=== PATIENT | male | born 1975 | race Asian ===

== ENCOUNTER → 2019-04-16 | Day surgery (SDC) | payer OTHER ==
[~2019-04-16] MED LIST: ASPIR 8181 MG PO; ATORVASTATIN CA10 MG PO; FENOFIBRATE145 MG PO; FENTANYL CITRATE/PF 100MCG/2 ML INJ ONE; MIDAZOLAM HCL 2 MG/2 ML VIAL ONE; MULTI-VITAMIN1 EACH PO; PROPOFOL IV EMULSION 10 MG/ML 50 ML VIAL ONE
--- OUTSIDE RECORDS SUMMARY | 2019-04-16 05:33 | XMS REPORT ---
Author Author Prateek Baugh Organization [employer] Address Unknown Phone Unavailable Care Team Providers Care Esthetician/Spa Coordinator Name Role Phone Prateek Baugh CP Unavailable Allergies, Adverse Reactions, Alerts Substance Reaction Event Type aspirin swollen eye/trouble breathing Drug Allergy Problems Problem Type Condition Code Onset Dates Condition Status Problem Special screening for malignant neoplasm of prostate V76.44 Active Problem Hepatitis B exposure V01.79 Active Problem Prev Med Adult V70.0 Active Problem COPD (chronic obstructive pulmonary disease) J44.9 Active Problem BMI 31.0-31.9,adult Z68.31 Active Problem Hypertriglyceridemia E78.1 Active Problem Internal hemorrhoids without mention of complication 455.0 Active Problem Abdominal pain, other specified site 789.09 Active Problem Cigarette smoker one half pack a day or less F17.210 Active Problem Malnutrition of moderate degree 263.0 Active Assessment Hypertriglyceridemia E78.1 Active Assessment BMI 31.0-31.9,adult Z68.31 Active Assessment Family history of colon cancer in father Z80.0 Active Assessment Cigarette smoker one half pack a day or less F17.210 Active Assessment Obesity (BMI 30.0-34.9) E66.9 Active Assessment COPD (chronic obstructive pulmonary disease) J44.9 Active Assessment Rectal bleeding K62.5 Active Medications Medication Code System Code Instructions Start Date End Date Status Dosage Tricor [facility] [id number] 145 MG Orally Once a day Sep 10, 2018 Active 1 tablet Vital Signs Date/Time: Sep 10, 2018 BMI 31.58 Index Weight 184 lbs Height 64 in Cardiac Monitoring Heart Rate 98 /min Blood Pressure Diastolic 75 mm Hg Blood Pressure Systolic 124 mm Hg Results No Known Results Summary Purpose [employer] Submission
--- OUTSIDE RECORDS SUMMARY | 2019-04-16 05:33 | XMS REPORT ---
Author Author Prateek Baugh Organization [employer] Address Unknown Phone Unavailable Care Team Providers Care Log Pond Worker Name Role Phone Prateek Baugh CP Unavailable Allergies, Adverse Reactions, Alerts Substance Reaction Event Type aspirin swollen eye/trouble breathing Drug Allergy Problems Problem Type Condition Code Onset Dates Condition Status Problem Prev Med Adult V70.0 Active Problem Special screening for malignant neoplasm of prostate V76.44 Active Problem BMI 31.0-31.9,adult Z68.31 Active Problem Cigarette smoker one half pack a day or less F17.210 Active Problem COPD (chronic obstructive pulmonary disease) J44.9 Active Problem Abdominal pain, other specified site 789.09 Active Problem Hepatitis B exposure V01.79 Active Problem Malnutrition of moderate degree 263.0 Active Problem Internal hemorrhoids without mention of complication 455.0 Active Assessment Obesity (BMI 30.0-34.9) E66.9 Active Assessment BMI 31.0-31.9,adult Z68.31 Active Assessment COPD (chronic obstructive pulmonary disease) J44.9 Active Assessment Family history of colon cancer in father Z80.0 Active Assessment Dizziness and giddiness R42 Active Assessment Cigarette smoker one half pack a day or less F17.210 Active Assessment Exposure to hepatitis Z20.5 Active Assessment Rectal bleeding K62.5 Active Assessment Encounter for general adult medical examination with abnormal findings Z00.01 Active Medications No Known Medications Vital Signs Date/Time: Sep 03, 2018 BMI 31.55 Index Weight 183.8 lbs Height 64 in Cardiac Monitoring Heart Rate 93 /min Blood Pressure Diastolic 73 mm Hg Blood Pressure Systolic 116 mm Hg Results Name Result Date Reference Range Unit Abnormality Flag SPIROMETRY Summary Purpose [employer] Submission
--- OUTSIDE RECORDS SUMMARY | 2019-04-16 05:33 | XMS REPORT | Continuity of Care Document ---
Author Author [place] Address Unknown Phone Unavailable Care Team Providers Care Virtual Classroom Manager Name Role Phone [employer] Unavailable Unavailable Problems Problem Status Onset Date Classification Date Reported Comments Source Special screening for malignant neoplasm of prostate Active Problem 12/16/2018 Girain Baugh Hepatitis B exposure Active Problem 12/16/2018 Girain Starksang Prev Med Adult Active Problem 12/16/2018 Giao Taylordiego Baugh COPD (chronic obstructive pulmonary disease) Active Problem 12/16/2018 Girain Taylordiego Starksang BMI 31.0-31.9,adult Active Problem 12/16/2018 Girain Baugh Hypertriglyceridemia Active Problem 12/16/2018 Girain Baugh Internal hemorrhoids without mention of complication Active Problem 12/16/2018 Girain Baugh Abdominal pain, other specified site Active Problem 12/16/2018 Girain Taylordiego Baugh Cigarette smoker one half pack a day or less Active Problem 12/16/2018 Giao Taylordiego Baugh Malnutrition of moderate degree Active Problem 12/16/2018 Giao Taylordiego Baugh Family history of colon cancer in father Active Diagnosis 12/16/2018 Girain Baugh Obesity (BMI 30.0-34.9) Active Diagnosis 09/12/2018 Girain Taylor Baugh Rectal bleeding Active Diagnosis 12/16/2018 Girain Taylordiego Baugh Dizziness and giddiness Active Diagnosis 09/05/2018 Girain Baugh Exposure to hepatitis Active Diagnosis 09/05/2018 Girain Taylordiego Baugh Encounter for general adult medical examination with abnormal findings Active Diagnosis 09/05/2018 Giao Taylor Baugh Obesity (BMI 30-39.9) Active Diagnosis 12/16/2018 Giao Taylordiego Baugh Medications Medication Details Route Status Patient Instructions Ordering Provider Order Date Source Vascepa 2 capsules with meals Orally Active 1 GM Orally Twice a day Baugh 12/14/2018 Giao Taylor Baugh Tricor 1 tablet Orally Active 145 MG Orally Once a day Baugh 09/10/2018 Giao Taylor Baugh Tricor 1 tablet Orally Active 145 MG Orally Once a day Baugh Giao Taylor Baugh Allergies, Adverse Reactions, Alerts Substance Category Reaction Severity Reaction type Status Date Reported Comments Source aspirin Adverse Reaction swollen eye/trouble breathing Adverse Reaction Active 12/14/2018 Giao Taylor Baugh Immunizations No Data Provided for This Section Results No Data Provided for This Section Pathology Reports No Data Provided for This Section Diagnostic Reports No Data Provided for This Section Consultation Notes No Data Provided for This Section Discharge Summaries No Data Provided for This Section History and Physicals No Data Provided for This Section Vital Signs Vital Sign Value Date Comments Source Weight 184 12/14/2018 Giao Taylor Baugh Height 64 12/14/2018 Giao Taylor Baugh Heart Rate 86 12/14/2018 Giao Taylor Baugh Diastolic (mm Hg) 68 12/14/2018 Giao Taylor Baugh Systolic (mm Hg) 123 12/14/2018 Giao Taylor Baugh Weight 184 09/10/2018 Giao Taylor Baugh Height 64 09/10/2018 Giao Taylor Baugh Heart Rate 98 09/10/2018 Giao Taylor Baugh Diastolic (mm Hg) 75 09/10/2018 Giao Taylor Baugh Systolic (mm Hg) 124 09/10/2018 Giao Taylor Baugh Weight 183.8 09/03/2018 Giao Taylor Baugh Height 64 09/03/2018 Giao Taylor Baugh Heart Rate 93 09/03/2018 Giao Taylor Baugh Diastolic (mm Hg) 73 09/03/2018 Giao Taylor Baugh Systolic (mm Hg) 116 09/03/2018 Giao Taylor Baugh Encounters No Data Provided for This Section Procedures No Data Provided for This Section Assessment and Plan No Data Provided for This Section Plan of Care No Data Provided for This Section Social History No Data Provided for This Section Family History No Data Provided for This Section Advance Directives No Data Provided for This Section Functional Status No Data Provided for This Section
--- OUTSIDE RECORDS SUMMARY | 2019-04-16 05:33 | XMS REPORT ---
Author Author Prateek Baugh Organization [employer] Address Unknown Phone Unavailable Care Team Providers Care Merchandising Coordinator Name Role Phone Prateek Baugh CP [...] Malnutrition of moderate degree 263.0 Active Assessment BMI 31.0-31.9,adult Z68.31 Active Assessment Obesity (BMI 30-39.9) E66.9 Active Assessment Family history of colon cancer in father Z80.0 Active Assessment Cigarette smoker one half pack a day or less F17.210 Active Assessment Hypertriglyceridemia E78.1 Active Assessment COPD (chronic obstructive pulmonary disease) J44.9 Active Assessment Rectal bleeding K62.5 Active Medications Medication Code System Code Instructions Start Date End Date Status Dosage Vascepa [facility] [id number] 1 GM Orally Twice a day December 14, 2018 March 14, 2019 Active 2 capsules with meals Tricor [facility] [id number] 145 MG Orally Once a day Active 1 tablet Vital Signs Date/Time: December 14, 2018 BMI 31.58 Index Weight 184 lbs Height 64 in Cardiac Monitoring Heart Rate 86 /min Blood Pressure Diastolic 68 mm Hg Blood Pressure Systolic 123 mm Hg Results No Known Results Summary Purpose [employer] Submission
--- NOTE | 2019-04-16 07:10 | NUR ---
SPIRITUAL CARE - Pre-Surgery Assessment: Pt in bed. Pt reported supportive attention from family and friends. Intervention: I provided pastoral presence, hospitality, and sympathetic listening. I acquainted pt with availability of lieutenant general while hospitalized. Outcome: Pt expressed appreciation for visit. No need for follow up indicated at this time. V[facility] Spiritual Care Department O: [phone] Pager: [phone] ([phone] calling from)
== END | disposition home or self-care (01) ==
LOC: OR 05:26
PROVIDERS: ATTEND Internal Medicine Gastroenterology
DX: Z12.11 Encounter for screening for malignant neoplasm of colon (principal); D12.5 Benign neoplasm of sigmoid colon; F17.210 Nicotine dependence, cigarettes, uncomplicated; Z88.6 Allergy status to analgesic agent; Z91.013 Allergy to seafood; Z01.810 Encounter for preprocedural cardiovascular examination; Z68.31 Body mass index [BMI] 31.0-31.9, adult; Z80.0 Family history of malignant neoplasm of digestive organs
CPT/HCPCS: 45384; 93005; J2250; J2704; J3010; 45378